=== PATIENT | male | born 1950 | race Two or more races ===

== ENCOUNTER 2016-07-25 20:27 | Emergency (ER) | payer MEDICARE, BC ==
[~2016-07-25] VITALS: Ht 172.7 cm; Wt 90.7 kg
[2016-07-25] MEDS ORDERED: CAPTOPRIL 12.5 MG TABLET ONE (22:11)
[2016-07-25] MEDS ORDERED: LORAZEPAM 1 MG TABLET ONE (22:12)
[2016-07-25] MEDS ORDERED: CAPTOPRIL 12.5 MG TABLET PO ONE (22:30)
[2016-07-25] MEDS ORDERED: LORAZEPAM 1 MG TABLET PO ONE (22:30)
[2016-07-25 23:25] VITALS: BP 147/83
== END 2016-07-25 23:28 | disposition home or self-care (01) ==
LOC: ER 20:29
DX: I10 Essential (primary) hypertension (principal); F41.9 Anxiety disorder, unspecified
CPT/HCPCS: 99283; A4606; Z7610

== ENCOUNTER 2019-03-25 23:41 | Emergency (ER) | payer MEDICARE, BC ==
[~2019-03-25] VITALS: Ht 177.8 cm; Wt 81.6 kg
--- NOTE | 2019-03-25 23:59 | NUR ---
PT BIB SELF TO ER C/O LEFT FLANK PAIN 12/22 THAT RADIATES TO THE GROIN. AAOX4. NO SOB. NOT IN ANY DISTRESS. CONNECTED TO MONITOR.
[2019-03-26] MEDS ORDERED: MORPHINE SULFATE INJ 2 MG/ML DISP.SYRIN IV ONE
[2019-03-26] MEDS ORDERED: ONDANSETRON HCL/PF 4 MG/2 ML VIAL IVP ONE
[2019-03-26] MEDS ORDERED: IV NS 0.9% 500 ML BAG IV ONE
[2019-03-26] MEDS ORDERED: ONDANSETRON HCL/PF 4 MG/2 ML VIAL ONE ×2 (00:12→00:46)
[2019-03-26] MEDS ORDERED: MORPHINE SULFATE INJ 4 MG/ML DISP.SYRIN ONE (00:12)
[2019-03-26 00:22] LABS: CALCIUM, SERUM 9.4 mg/dL (8.5-10.1); CREATININE 1.6 mg/dL (0.6-1.3); POTASSIUM 4.4 mmol/L (3.5-5.1)
--- NOTE | 2019-03-26 00:28 | NUR ---
BUNDLE PACKER TAKING PT TO CT.
[2019-03-26 00:33] LABS: BASOPHILS % (AUTO) 0.4 % (0.0-2.0); EOSINOPHILS % (AUTO) 4.7 % (0.0-6.0); HEMATOCRIT 45 % (39-51); LYMPHOCYTES # (AUTO) 2.6 /CMM (0.8-4.8); LYMPHOCYTES % (AUTO) 28.8 % (20.0-44.0); MEAN CORPUSCULAR HGB CONC 33 g/dl (31.0-36.0); MEAN CORPUSCULAR VOLUME 91 fL (80-96); MONOCYTES # (AUTO) 0.6 /CMM (0.1-1.30); NEUTROPHILS # (AUTO) 5.4 /CMM (1.8-8.9); NEUTROPHILS % (AUTO) 59.1 % (43.0-81.0); PLATELET COUNT (AUTO) 223 /CMM (150-450); RED BLOOD CELL COUNT(AUTO) 4.94 MIL/uL (4.5-6.0); WHITE BLOOD COUNT (AUTO) 9.1 K/uL (4.3-11.0)
[2019-03-26 00:39] LABS: APPEARANCE,URINE Clear (CLEAR); BILIRUBIN,URINE Negative (NEGATIVE); BLOOD, URINE Small Ery/uL (NEGATIVE); COLOR,URINE Yellow (YELLOW); KETONES,URINE Negative (NEGATIVE); LEUKOCYTE ESTERASE ,URINE Negative (NEGATIVE); NITRITE, URINE Negative (NEGATIVE); PROTEIN,URINE 30 mg/dl (NEGATIVE); UGLUCOSE Negative (NEGATIVE); UROBILINOGEN,URINE 0.2 EU/dL (0.2)
--- NOTE | 2019-03-26 00:47 | NUR ---
PT C/O FEELING NAUCEOUS. PT REC'D AN EMESIS BAG AND MD NOTIFIED. NEW ORDERS GIVEN.
--- NOTE | 2019-03-26 00:49 | NUR ---
ZOFRAN 4MG IVP GIVEN BY ED, RN
[2019-03-26] MEDS ORDERED: ONDANSETRON HCL/PF - ER 4 MG/2 ML VIAL IV ONE (01:00)
--- NOTE | 2019-03-26 02:01 | NUR ---
Patient discharged to home in stable condition. Written and verbal after care instructions given. Patient verbalizes understanding of instruction AND RX. IV removed. Catheter intact and site benign. Pressure and 4x4 applied to site. No bleeding noted. PT IS CALLING AN UBER TO TAKE HIM HOME. VSS, NAD NOTED. PT AMBULATED OUT TO THE LOBBY WITH A STEADY GAIT.
[2019-03-26 02:03] VITALS: BP 157/82
[2019-03-26 02:05] LABS: BACTERIA,URINE Few /HPF (None Seen); SQUAMOUS EPITHELIAL CELL,UR Rare /HPF (None Seen)
== END 2019-03-26 02:05 | disposition home or self-care (01) ==
LOC: ER 23:50
DX: R10.9 Unspecified abdominal pain (principal); R31.9 Hematuria, unspecified; I10 Essential (primary) hypertension; Z87.442 Personal history of urinary calculi
CPT/HCPCS: 36415; 74176; 80048; 81001; 85025; 96374; 96375; 96376; 99284; J2270; J2405 ×3; J7040; 81000-TC

== ENCOUNTER 2021-09-24 23:44 | Inpatient (IN) | payer MEDICARE, BC ==
[~2021-09-24] VITALS: Ht 172.7 cm; Wt 89.4 kg
[2021-09-24] MEDS ORDERED: hydrALAZINE HCL IV 20 MG VIAL ONE (23:56)
[2021-09-25] MEDS ORDERED: hydrALAZINE HCL IV 20 MG VIAL IV ONE
--- NOTE | 2021-09-25 00:07 | NUR ---
IV LINE ESTABLISHED, LAC 20G. BLOOD COLLECTED AND SENT TO LAB
--- NOTE | 2021-09-25 00:10 | NUR ---
DANIELLE SCANLON AT BEDSIDE FOR EKG
--- NOTE | 2021-09-25 00:19 | NUR ---
URINAL PROVIDED TO PT
[2021-09-25 00:34] LABS: BASOPHILS % (AUTO) 0.4 % (0.0-2.0); EOSINOPHILS % (AUTO) 2.4 % (0.0-6.0); HEMATOCRIT 41 % (39-51); HEMOGLOBIN 14.1 g/dL (13.5-17.5); LYMPHOCYTES # (AUTO) 1.6 K/uL (0.8-4.8); LYMPHOCYTES % (AUTO) 18.1 % (20.0-44.0); MEAN CORPUSCULAR HGB CONC 35 g/dl (31.0-36.0); MEAN CORPUSCULAR VOLUME 90 fL (80-96); MONOCYTES # (AUTO) 0.6 K/uL (0.1-1.30); MONOCYTES % (AUTO) 6.9 % (2.0-12.0); NEUTROPHILS # (AUTO) 6.3 K/uL (1.8-8.9); NEUTROPHILS % (AUTO) 72.2 % (43.0-81.0); PLATELET COUNT (AUTO) 226 K/uL (150-450); RED BLOOD CELL COUNT(AUTO) 4.49 MIL/uL (4.5-6.0); WHITE BLOOD COUNT (AUTO) 8.7 K/uL (4.3-11.0)
--- NOTE | 2021-09-25 00:44 | NUR ---
PT TAKEN FOR CT SCAN
[2021-09-25 00:53] LABS: CALCIUM, SERUM 8.9 mg/dL (8.5-10.1); CARBON DIOXIDE 26 mmol/L (21-32); CHLORIDE 108 mmol/L (98-107); CREATININE 2.5 mg/dL (0.6-1.3); GLUCOSE 111 mg/dL (74-106); POTASSIUM 4.4 mmol/L (3.5-5.1); SODIUM SERUM 142 mmol/L (136-145); UREA NITROGEN, BLOOD 45 mg/dL (7-18)
--- NOTE | 2021-09-25 00:57 | NUR ---
PT BACK FROM CT, RECONNECTED TO MONITOR
[2021-09-25 01:09] LABS: ALANINE AMINOTRANSFERASE 19 U/L (12-78); ALBUMIN 3.9 g/dL (3.4-5.0); ALKALINE PHOSPHATASE 63 U/L (46-116); ASPARTATE AMINOTRANSFERASE 12 U/L (15-37); BILIRUBIN,DIRECT 0.1 mg/dL (0.0-0.2); BILIRUBIN,TOTAL 0.4 mg/dL (0.2-1.0); TOTAL PROTEIN, SERUM 7.5 g/dL (6.4-8.2)
--- NOTE | 2021-09-25 02:11 | NUR ---
URINE SAMPLE COLLECTED AND SENT TO LAB
--- NOTE | 2021-09-25 02:11 | NUR ---
COVID ANTIGEN SWAB COLLECTED AND SENT TO LAB
[2021-09-25 02:32] LABS: BILIRUBIN,URINE NEGATIVE (NEGATIVE); COLOR,URINE YELLOW (YELLOW); LEUKOCYTE ESTERASE ,URINE NEGATIVE (NEGATIVE); NITRITE, URINE NEGATIVE (NEGATIVE); PH,URINE 6.5 (5.0-8.0); PROTEIN,URINE TRACE mg/dl (NEGATIVE); UGLUCOSE NEGATIVE (NEGATIVE); UROBILINOGEN,URINE 0.2 EU/dL (0.2)
--- NOTE | 2021-09-25 02:49 | NUR ---
PT AMBULATED TO BATHROOM, STEADY GAIT NOTED.
[2021-09-25] MEDS ORDERED: NITROGLYCERIN 0.4 MG/TAB BOTTLE SL PRN (04:00)
[2021-09-25] MEDS ORDERED: ONDANSETRON HCL/PF 4 MG/2 ML VIAL IVP PRN (04:00)
[2021-09-25] MEDS ORDERED: DOCUSATE SODIUM 100 MG CAPSULE PO PRN (04:00)
[2021-09-25] MEDS ORDERED: MAG HYDROX/AL HYDROX/SIMETH 30 ML UDC PO PRN (04:00)
[2021-09-25] MEDS ORDERED: ACETAMINOPHEN 325 MG TABLET PO PRN (04:00)
--- NOTE | 2021-09-25 04:18 | NUR ---
REPORT GIVEN TO KYA COOPER FOR KIZZY
[2021-09-25] MEDS ORDERED: ASPIRIN 325 MG TABLET PO SCH (05:00)
[2021-09-25] MEDS ORDERED: ASPIRIN 325 MG TABLET ONE (05:01)
--- NOTE | 2021-09-25 05:04 | NUR ---
ASSEMBLER FLEXIBLE LEADSFILAMENT TESTER NOTES RECEIVED PATIENT FROM ED VIA [facility]. A/O X4, AMBULATORY. NO APPARENT DISTRESS NOTED. BREATHING EVEN AND NON-LABORED ON ROOM AIR. NO C/O PAIN OR DISCOMFORT. NO EPISTAXIS, DRY BLOOD NOTED ON BOTH NARES. ON TELE MONITOR READING SINUS RHYTHM AT 85 BPM. HAS LEFT ANTECUBITAL IV ACCESS #20G AND SALINE LOCKED. NO S/S OF INFILTRATION NOTED. CONTINENT. ALL BELONGINGS ACCOUNTED FOR. DISCUSSED PLAN OF CARE WITH PATIENT, VERBALIZED UNDERSTANDING.
[2021-09-25] MEDS: hydrALAZINE HCL IV 20 MG VIAL IV PRN ×2 (05:14→19:36)
[2021-09-25 05:30] VITALS: BP 177/78
--- NOTE | 2021-09-25 05:30 | NUR ---
FERRY HAND NOTES BP 177/78, PRN HYDRALAZINE ADMINISTERED AND TOLERATED WELL. LAST DOSE WAS GIVEN AT 0007.
[2021-09-25 06:21] LABS: BACTERIA,URINE None seen /HPF (None Seen); RBC,URINE 0-2 /HPF (0-2); SQUAMOUS EPITHELIAL CELL,UR Few /HPF (None Seen); WBC,URINE 0-2 /HPF (0-3)
--- NOTE | 2021-09-25 06:57 | NUR ---
CRYOGENICS REPAIRER CLOSING NOTES PATIENT LYING IN BED WITH EYES CLOSED. EASY TO AROUSE. A/O X4. NO C/O PAIN AT THIS TIME. NO SOB OR NOTED. ON TELE MONITOR READING SINUS RHYTHM AT 76 BPM. HAS LEFT ANTECUBITAL IV ACCESS #20G AND SALINE LOCKED. INTACT, PATENT AND FLUSHING. ALL NEEDS ATTENDED. KEPT DRY AND COMFORTABLE. SKIN ASSESSMENT DONE. SAFETY MEASURES IN PLACE: BED LOW AND LOCKED, SIDE RAILS UP X2, CALL LIGHT WITHIN REACH.
--- NOTE | 2021-09-25 07:00 | NUR ---
BELL HOLE DIGGER OPENING NOTES PATIENT LAYING IN BED, A/O X 4, ABLE TO MAKE NEEDS KNOWN. TOLERATING WELL ON ROOM AIR WITH NO SOB OR RESPIRATORY DISTRESS. NO COMPLAINTS OF PAIN OR DISCOMFORT AT THIS TIME. ON TELE MONITOR READING NS 82. LEFT AC # 20 G CLEAN, INTACT, AND FLUSHING WELL. ALL NEEDS MET. BED IN LOWEST LOCKED POSITION, SIDE RAILS UP X 2, CALL LIGHT WITHIN REACH. WILL CONTINUE TO MONITOR.
[2021-09-25 07:29] LABS: BASOPHILS % (AUTO) 0.2 % (0.0-2.0); EOSINOPHILS % (AUTO) 1.8 % (0.0-6.0); HEMATOCRIT 40 % (39-51); HEMOGLOBIN 13.2 g/dL (13.5-17.5); LYMPHOCYTES # (AUTO) 1.8 K/uL (0.8-4.8); LYMPHOCYTES % (AUTO) 15.9 % (20.0-44.0); MEAN CORPUSCULAR HGB CONC 33 g/dl (31.0-36.0); MEAN CORPUSCULAR VOLUME 91 fL (80-96); MONOCYTES # (AUTO) 0.7 K/uL (0.1-1.30); MONOCYTES % (AUTO) 6.5 % (2.0-12.0); NEUTROPHILS # (AUTO) 8.7 K/uL (1.8-8.9); NEUTROPHILS % (AUTO) 75.6 % (43.0-81.0); PLATELET COUNT (AUTO) 214 K/uL (150-450); RED BLOOD CELL COUNT(AUTO) 4.36 MIL/uL (4.5-6.0); WHITE BLOOD COUNT (AUTO) 11.5 K/uL (4.3-11.0)
[2021-09-25 08:00] VITALS: BP 154/76
[2021-09-25 08:10] LABS: ALANINE AMINOTRANSFERASE 17 U/L (12-78); ALBUMIN 3.6 g/dL (3.4-5.0); ALKALINE PHOSPHATASE 58 U/L (46-116); ASPARTATE AMINOTRANSFERASE 11 U/L (15-37); BILIRUBIN,TOTAL 0.6 mg/dL (0.2-1.0); CALCIUM, SERUM 8.7 mg/dL (8.5-10.1); CARBON DIOXIDE 22 mmol/L (21-32); CHLORIDE 107 mmol/L (98-107); CREATININE 2.2 mg/dL (0.6-1.3); GLUCOSE 110 mg/dL (74-106); MAGNESIUM 1.9 mg/dL (1.8-2.4); POTASSIUM 4.1 mmol/L (3.5-5.1); SODIUM SERUM 140 mmol/L (136-145); TOTAL PROTEIN, SERUM 6.9 g/dL (6.4-8.2); UREA NITROGEN, BLOOD 52 mg/dL (7-18)
[2021-09-25] MEDS ORDERED: AMLO-213 PO (08:12)
[2021-09-25] MEDS ORDERED: TAMS-12 PO (08:12)
[2021-09-25] MEDS ORDERED: LEVO125T8 PO (08:12)
[2021-09-25] MEDS ORDERED: ATOR80TA PO (08:12)
[2021-09-25 09:06] LABS: THYROID STIMULATING HORMONE 3.697 uIU/mL (0.358-3.74)
[2021-09-25 12:00] VITALS: BP 167/74
[2021-09-25] MEDS ORDERED: AMLODIPINE BESYLATE 5 MG TABLET PO SCH (12:00)
[2021-09-25] MEDS: IV NS 0.9% 1,000 ML IV SCH ×2 (12:29→22:00)
[2021-09-25 16:00] VITALS: BP 153/79
[2021-09-25] MEDS: LISINOPRIL (10MG) 10 MG TABLET PO SCH (16:41)
[2021-09-25] MEDS: AMLODIPINE BESYLATE 5 MG TABLET PO SCH ×2 (16:41→17:03)
--- NOTE | 2021-09-25 19:00 | NUR ---
SALES AND SERVICE CONSULTANT CLOSING NOTES PATIENT LAYING IN BED, A/O X 4, ABLE TO MAKE NEEDS KNOWN. TOLERATING WELL ON ROOM AIR WITH NO SOB OR RESPIRATORY DISTRESS. ON TELE MONITOR READING NS 80. LEFT AC # 20 G CLEAN, INTACT, AND FLUSHING WELL WITH NS @ 100 ML/HR. PATIENT WITH EPISTAXIS ONGOING, ICE PACK AND PRESSURE APPLIED TO NOSE, PATIENT SITTING AT 90 DEGREE ANGLE. ALL NEEDS MET. SAFETY MEASURES IN PLACE: BED IN LOWEST LOCKED POSITION, SIDE RAILS UP X 2, CALL LIGHT WITHIN REACH. WILL ENDORSE TO [employer] CONTRACTOR FOR KIZZY.
--- NOTE | 2021-09-25 19:30 | NUR ---
BODY WELDER OPENING RECEIVED PATIENT IN BED HAVING EPISODE OF EPISTAXIS-- ICE AND PRESSURE BEING APPLIED. ON BEDSIDE WITH PATIENT AT THIS TIME. A/OX4. PATIENT DENIES PAIN. TELE MONITOR READING SINUS RHYTHM WITH 70 BPM. IV NS RUNNING @ 100 MLS/HR. SAFETY IN PLACE. ORIENTED WITH THE USE OF CALL LIGHT. WILL CONTINUE TO MONITOR PATIENT.
--- NOTE | 2021-09-25 19:45 | NUR ---
FILLING HAND NOTE GIVEN APRESOLINE PRN WITH BP OF 169/83 HR 72. NOSE BLEED STILL GOING-- CONTINUING WITH ICE AND PRESSURE. WILL RE-CHECK BP AND CONTINUE TO MONITOR.
[2021-09-25 20:00] VITALS: BP 169/83
--- NOTE | 2021-09-25 20:05 | NUR ---
MACHINIST CLASS B NOTE- BP RE-CHECK BP 156/78 HR 77 AFTER APRESOLINE. WILL CONTINUE TO MONITOR.
[2021-09-25 20:30] VITALS: BP 156/78
[2021-09-25] MEDS ORDERED: TEMAZEPAM 7.5 MG CAPSULE PO PRN (21:00)
[2021-09-26] VITALS: BP 120/71
[2021-09-26 04:00] VITALS: BP 117/66
--- NOTE | 2021-09-26 06:35 | NUR ---
TREASURY MANAGEMENT SALES CONSULTANT CLOSING NOTE PATIENT IN BED, A/OX4. HAD 2 EPISODES OF NOSEBLEED LAST NIGHT-- MANAGED BY ICE AND PRESSURE. NO S/S OF APPARENT DISTRESS ON ROOM AIR. DENIES PAIN AT THIS TIME. TELE MONITOR READING SR THROUGHOUT SHIFT. BP THIS MORNING 117/66. ALL NEEDS ATTENDED. ALL SCHEDULED MEDS ADMINISTERED. SAFETY KEPT THROUGHOUT SHIFT. WILL ENDORSE TO ALLISON MARQUEZ FOR CONTINUITY OF CARE.
--- NOTE | 2021-09-26 07:00 | NUR ---
MACHINE ASSEMBLER FOR PULLER OVER OPENING NOTES PATIENT LAYING IN BED, A/O X 4, ABLE TO MAKE NEEDS KNOWN. TOLERATING WELL ON ROOM AIR WITH NO SOB OR S/S RESPIRATORY DISTRESS. NO COMPLAINTS OF PAIN OR DISCOMFORT AT THIS TIME. TELE MONITOR READING SR 78. SAFETY MEASURES IN PLACE: BED IN LOWEST LOCKED POSITION, SIDE RAILS UP X 2, CALL LIGHT WITHIN REACH. WILL CONTINUE TO MONITOR.
[2021-09-26] MEDS: IV NS 0.9% 1,000 ML IV SCH (07:20)
[2021-09-26 09:15] LABS: BASOPHILS % (AUTO) 0.3 % (0.0-2.0); EOSINOPHILS % (AUTO) 2.3 % (0.0-6.0); HEMATOCRIT 40 % (39-51); HEMOGLOBIN 13.3 g/dL (13.5-17.5); LYMPHOCYTES # (AUTO) 1.7 K/uL (0.8-4.8); LYMPHOCYTES % (AUTO) 16.4 % (20.0-44.0); MEAN CORPUSCULAR HGB CONC 34 g/dl (31.0-36.0); MEAN CORPUSCULAR VOLUME 92 fL (80-96); MONOCYTES # (AUTO) 0.7 K/uL (0.1-1.30); MONOCYTES % (AUTO) 6.5 % (2.0-12.0); NEUTROPHILS # (AUTO) 7.8 K/uL (1.8-8.9); NEUTROPHILS % (AUTO) 74.5 % (43.0-81.0); PLATELET COUNT (AUTO) 218 K/uL (150-450); RED BLOOD CELL COUNT(AUTO) 4.34 MIL/uL (4.5-6.0); WHITE BLOOD COUNT (AUTO) 10.5 K/uL (4.3-11.0)
[2021-09-26 09:20] VITALS: BP 131/74
[2021-09-26] MEDS: LISINOPRIL (10MG) 10 MG TABLET PO SCH (09:20)
[2021-09-26] MEDS: AMLODIPINE BESYLATE 5 MG TABLET PO SCH (09:20)
[2021-09-26 09:26] LABS: CARBON DIOXIDE 26 mmol/L (21-32); CHLORIDE 106 mmol/L (98-107); CREATININE 2.3 mg/dL (0.6-1.3); GLUCOSE 111 mg/dL (74-106); POTASSIUM 4.7 mmol/L (3.5-5.1); SODIUM SERUM 139 mmol/L (136-145); UREA NITROGEN, BLOOD 47 mg/dL (7-18)
[2021-09-26] MEDS ORDERED: LISI10TA29 PO (09:58)
--- NOTE | 2021-09-26 11:18 | NUR ---
CLOTH LAYERTUCKPOINTER NOTES PATIENT MADE AWARE OF MD DISCHARGE INSTRUCTIONS. PATIENT AND FAMILY VERBALIZED UNDERSTANDING OF MD DISCHARGE INSTRUCTIONS AND SIGNED INSTRUCTIONS SHEET. PATIENT AND FAMILY ALSO VERBALIZED POSSESSION OF ALL BELONGINGS AND SIGNED BELONGINGS SHEET. PATIENT STABLE AT TIME OF DISCHARGE. ID BAND AND IV LINE REMOVED. Addendum: 09/26/21 at 1416 by JIMMY GARCIA RN ALL DISCHARGE PAPERWORK PROVIDED TO PATIENT. HELP AID AND LEADS REMOVED. PATIENT TRANSFERRED OFF OF UNIT VIA WHEELCHAIR ACCOMPANIED BY ANURAG.
[2021-09-26] MEDS ORDERED: TAMSULOSIN 0.4 MG CAP.SR.24H PO SCH (22:00)
[2021-09-26] MEDS ORDERED: ATORVASTATIN 40 MG TABLET PO SCH (22:00)
[2021-09-27] MEDS ORDERED: AMLODIPINE BESYLATE 10 MG TABLET PO SCH (09:00)
[2021-09-27] MEDS ORDERED: LEVOTHYROXINE SODIUM 125 MCG TABLET PO SCH (09:00)
== END 2021-09-26 12:00 | disposition home or self-care (01) | DRG 280 ==
LOC: ER 23:49 → TELE 09-25 04:15
PROVIDERS: ADMIT Internal Medicine; ATTEND Internal Medicine
DX: I16.0 Hypertensive urgency (principal); N17.0 Acute kidney failure with tubular necrosis; I21.4 Non-ST elevation (NSTEMI) myocardial infarction; I12.9 Hypertensive chronic kidney disease with stage 1 through stage 4 chronic kidney disease, or unspecified chronic kidney disease; Z90.5 Acquired absence of kidney; Z87.442 Personal history of urinary calculi; Z91.14 Patient's other noncompliance with medication regimen; N18.9 Chronic kidney disease, unspecified; R04.0 Epistaxis; E03.9 Hypothyroidism, unspecified; E78.5 Hyperlipidemia, unspecified; Z85.528 Personal history of other malignant neoplasm of kidney; R94.31 Abnormal electrocardiogram [ECG] [EKG]
CPT/HCPCS: 36415; 70450-TC; 71045-TC; 76770-TC; 80048-TC; 80053-TC; 80076-TC; 81001; 83735-TC; 84100-TC; 84443-TC; 84484-TC; 85025-TC; 85730-TC; 87081-TC; 93307-TC; C9803; G0378; J0360; J7030